=== PATIENT | female | born 1985 | race Caucasian/White ===

== ENCOUNTER 2016-10-27 08:00 | Inpatient (IN) | payer MEDICAID ==
[~2016-10-27] VITALS: Ht 142.2 cm; Wt 81.0 kg
[2016-10-28 07:03] VITALS: Ht 142.2 cm; Wt 81.0 kg
[2016-10-28] MEDS ORDERED: CEFAZOLIN 2 GM/50 ML (PMX) 50 ML IV SCH (07:30)
[2016-10-28] MEDS ORDERED: OXYTOCIN 30 UNITS/LR 500 ML IV SCH (07:30)
[2016-10-28] MEDS ORDERED: CARBOPROST 250 MCG INJ IM PRN ×2 (07:30→14:30)
[2016-10-28] MEDS ORDERED: MISOPROSTOL 200 MCG TAB PR PRN ×2 (07:30→14:30)
[2016-10-28] MEDS ORDERED: OXYTOCIN 30 UNITS/LR 500 ML IV PRN ×2 (07:30→14:30)
[2016-10-28] MEDS ORDERED: METHYLERGONOVINE 0.2 MG INJ IM PRN ×2 (07:30→14:30)
[2016-10-28] MEDS ORDERED: PRENAT PO (07:48)
[2016-10-28 07:49] VITALS: BP 116/76; PULSE 83
[2016-10-28 08:00] LABS: BASOPHILS % 0.3 % (0.0-2.0); EOSINOPHILS # 0.2 10^3/ul (0.0-0.5); EOSINOPHILS % 2.3 % (0.0-7.0); HEMATOCRIT 35.6 % (37.0-47.0); HEMOGLOBIN 12.1 g/dl (12.0-16.0); LYMPHOCYTES # 2.5 10^3/ul (0.8-2.9); LYMPHOCYTES % 27.5 % (15.0-51.0); MEAN CORPUSCULAR HEMOGLOBIN 28.9 pg (29.0-33.0); MEAN CORPUSCULAR HGB CONC 34.1 g/dl (32.0-37.0); MEAN CORPUSCULAR VOLUME 84.9 fl (82.0-101.0); MEAN PLATELET VOLUME 7.7 fl (7.4-10.4); MONOCYTE # 0.8 10^3/ul (0.3-0.9); MONOCYTES % 9.1 % (0.0-11.0); NEUTROPHIL # 5.6 10^3/ul (1.6-7.5); NEUTROPHILS % 60.8 % (39.0-77.0); PLATELET COUNT 214 10^3/UL (140-440); RED BLOOD COUNT 4.19 10^6/ul (4.20-5.40); RED CELL DISTRIBUTION WIDTH 14.5 % (11.5-14.5); UNCORRECTED WBC 9.1 10^3/ul (4.8-10.8); WHITE BLOOD COUNT 9.1 10^3/ul (4.8-10.8)
[2016-10-28 08:02] LABS: CONDITION 1; LH ANALYZER COMMENTS 1
[2016-10-28 08:06] LABS: INR 0.97; PARTIAL THROMBOPLASTIN TIME 26.4 Sec (25.0-35.0); PROTIME 12.9 Sec (12.2-14.2)
[2016-10-28] MEDS: LACTATED RINGER'S 1,000 ML IV SCH ×2 (08:15→09:48)
[2016-10-28] MEDS ORDERED: ONDANSETRON 4 MG INJ ONE (09:25)
[2016-10-28] MEDS ORDERED: CITRIC ACID/NA CITRATE 30 ML CUP ONE (09:25)
[2016-10-28] MEDS ORDERED: LACTATED RINGER'S 1,000 ML IV ONE (09:47)
[2016-10-28] MEDS ORDERED: HYDROmorphONE (0.2 MG/ML) 10ML SYG IV PRN ×3 (10:00)
[2016-10-28] MEDS ORDERED: MEPERIDINE 25 MG INJ IV PRN (10:00)
[2016-10-28] MEDS ORDERED: EPHEDrine SULFATE 50 MG/5 ML SYG IV PRN (10:00)
[2016-10-28] MEDS ORDERED: KETOROLAC 30 MG INJ IV ONE (10:00)
[2016-10-28] MEDS ORDERED: CITRIC ACID/NA CITRATE 30 ML CUP PO ONE (10:00)
[2016-10-28] MEDS ORDERED: hydrALAzine 20 MG INJ IV PRN (10:00)
[2016-10-28] MEDS ORDERED: MIDAZOLAM 1 MG/ML 2 ML INJ IV PRN (10:00)
[2016-10-28] MEDS ORDERED: DIPHENHYDRAMINE 50 MG INJ IV PRN ×3 (10:00→18:00)
[2016-10-28] MEDS ORDERED: ONDANSETRON 4 MG INJ IV ONE (10:00)
[2016-10-28] MEDS ORDERED: OXYTOCIN 10 UNIT INJ ONE (10:23)
[2016-10-28] MEDS ORDERED: morphine SULFATE/PF (10 MG/10 ML) INJ ONE (10:23)
[2016-10-28] MEDS ORDERED: MIDAZOLAM 1 MG/ML 2 ML INJ ONE (10:23)
[2016-10-28] MEDS ORDERED: EPHEDrine SULFATE 50 MG/5 ML SYG ONE (10:23)
[2016-10-28] MEDS ORDERED: ONDANSETRON 4 MG INJ IV PRN ×3 (11:00→18:00)
[2016-10-28] MEDS ORDERED: KETOROLAC 30 MG INJ IV PRN ×2 (14:00→18:00)
[2016-10-28] MEDS ORDERED: NALOXONE (0.4 MG/ML) INJ IV PRN ×2 (14:00→18:00)
[2016-10-28] MEDS ORDERED: morphine 2 MG INJ IV PRN ×4 (14:00→18:00)
[2016-10-28] MEDS ORDERED: ZOLPIDEM 5 MG TAB PO PRN ×2 (14:00→18:00)
--- NOTE | 2016-10-28 14:10 | DELSUM ---
Delivery Summary A-C Datetime Report Generated by CPN: 10/28/2016 14:10 DELIVERY PERSONNEL [employer] Craftsman: [place], Nathalie MATERNAL INFORMATION Delivery Anesthesia: Spinal Estimated Blood Loss (ml): 650 Placenta Cultured: No Maternal Complications: Precip Labor <3hrs LABOR SUMMARY EDC: 11/03/2016 00:00 No. Babies in Womb: 1 Attempted: No Labor Anesthesia: None LABOR INFORMATION Reason for Induction: Not Applicable Oxytocin: N/A Group B Beta Strep: Negative Antibiotics # of Doses: 1 Antibiotics Time of Last Dose: 1030 Steroids Given: None Reason Steroids Not Administered: Not Applicable MEMBRANES Membranes Rupture Method: Artificial Rupture of Membranes: 10/28/2016 11:02 Length of Rupture (hr): 0.02 Amniotic Fluid Color: Light Meconium Amniotic Fluid Amount: Moderate Amniotic Fluid Odor: None STAGES OF LABOR Stage 3 hr: 0 Stage 3 min: 2 CSECTION DELIVERY Primary Indication: Repeat Elective Secondary Indication: N/A CSection Urgency: Elective CSection Incidence: Repeat Labor: No Labor Elective: N/A CSection Incision: Lower Uterine Transverse BABY A INFORMATION Delivery Date/Time: 10/28/2016 11:03 Method of Delivery: Born in Route : No : N/A Forceps: N/A Vacuum Extraction: N/A Shoulder Dystocia : No SHOULDER DYSTOCIA BABY A Infant Delivery Date/Time: 10/28/2016 11:03 PRESENTATION/POSITION BABY A Presentation: Cephalic Cephalic Presentation: Vertex Breech Presentation: N/A PLACENTA INFORMATION BABY A Placenta Delivery Time : 10/28/2016 11:05 Placenta Method of Delivery: Manual Removal Placenta Status: Delivered SCORES BABY A Heart Rate 1 min: >100 bpm Resp Effort 1 min: Good Cry Reflex Irritability 1 min: Cough/Sneeze/Pulls Away Muscle Tone 1 min: Active Motion Color 1 min: Blue/Pale SCORE 1 MIN: 8 Heart Rate 5 min: >100 bpm Resp Effort 5 min: Good Cry Reflex Irritability 5 min: Cough/Sneeze/Pulls Away Muscle Tone 5 min: Active Motion Color 5 min: Body [place], Extremit Blue SCORE 5 MIN: 9 INFORMATION BABY A Gestational Age at Delivery: 39.1 Gestational Status: Full Term- 39- 40.6 Weeks Outcome : Liveborn Infant Condition : Stable Infant Sex: Male IDENTIFICATION/MEDS BABY A ID Band Number: [id number] ID Band Location: Right Leg; Left Arm Sensor Applied: Yes Sensor Number: [id number] Sensor Location : Cord Clamp Vitamin K Given : Not Given Erythromycin Given: Not Given WEIGHT/LENGTH BABY A Birthweight (gm): 3420 Weight (lb): 7 Weight (oz): 9 Length (in): 20.00 Length (cm): 50.80 CORD INFORMATION BABY A No. Cord Vessels: 3 Nuchal Cord : N/A Cord Blood Taken: Yes Suction: Mouth ASSESSMENT BABY A Complications: None Physical Findings at Delivery: Within Normal Limits Infant Respirations: Appears Normal Wildlife Protector/ALS Called : No Infant Care By: RT AND RESOURCE NURSE Transferred To: Remains with Mother
[2016-10-28] MEDS ORDERED: LANOLIN 7 GM TUBE TOP PRN (14:30)
[2016-10-28] MEDS ORDERED: CEFAZOLIN 1 GM/50 ML (PMX) 50 ML IVPB SCH ×2 (14:30→23:00)
[2016-10-28] MEDS ORDERED: ACETAMINOPHEN/CODEINE #3 TAB PO PRN ×2 (14:30)
[2016-10-28] MEDS ORDERED: OXYCODONE/ACETAMINOPHEN (5/325) TAB PO PRN (14:30)
[2016-10-28 15:15] VITALS: BP 113/71; PULSE 80; RESP 18
[2016-10-28 16:00] VITALS: BP 102/58; PULSE 83; RESP 18
[2016-10-28 17:00] VITALS: BP 104/62; PULSE 81; RESP 18
[2016-10-28 18:00] VITALS: BP 95/56; PULSE 76; RESP 18
[2016-10-28] MEDS: OXYTOCIN 30 UNITS/LR 500 ML IV SCH ×3 (18:29→22:40)
--- NOTE | 2016-10-28 18:39 | OPR ---
DATE OF OPERATION: 10/28/2016 PREOPERATIVE DIAGNOSES 1. Intrauterine at 39 weeks' gestation. 2. History of 3 previous sections. POSTOPERATIVE DIAGNOSIS: 1. Intrauterine at 39 weeks' gestation. 2. History of 3 previous sections. OPERATION PERFORMED: Repeat transverse low cervical section for the 4th time. SURGEON: Agnieszka Craig MD HAND DEVELOPER: Jolie Braxton MD ANESTHESIA: Spinal. ANESTHESIOLOGIST: Dr. Grande. FINDINGS: Live baby boy, 8 and 9. Baby weighed 7 pounds 9 ounces. DETAILS OF THE PROCEDURE: Under satisfactory spinal anesthesia, the patient was prepped and draped and placed in supine position, tilted to the left. Pfannenstiel incision was made. Old scar was re moved. Incision carried through the subcutaneous tissue. Bleeders were brought under control with electrocautery. Fascia incised to the length of the incision. Rectus muscle divided in midline. P eritoneum exposed, entered through a transverse incision. Exploration of abdomen, gravid uterus at term, normal appearing tubes and ovaries. Lower segment of the uterus was extremely thinned out and there was a 3 x 2 cm window the baby from the abdominal cavity only by the amniotic mem brane. Bladder flap was developed. Transverse incision was made in the lower segment of the uterus . Amniotic sac ruptured. Clear amniotic fluid noted. Live baby boy was delivered from unengaged v ertex. Nasal oropharyngeal suction was performed. Baby handed to the team for immediate a ttention. The patient received 20 units of Pitocin. Placenta delivered manually intact. Uterine c avity cleaned with wet sponge and drainage established. Uterus closed in 2 layers using Monocryl #1 in continuous fashion, which was reinforced with the same suture material for the second layer, imb ricating the edges. The peritoneal cavity irrigated with warm saline. Sponge, needle and instrumen t reported to be correct. Abdominal peritoneum closed with 2-0 chromic catgut continuously. Rectus muscle approximated with few interrupted 2-0 chromic catgut. Fascia closed with #1 PDS in a contin uous fashion. Subcutaneous tissue approximated with 2-0 chromic catgut. Fascia closed with #1 PDS in a continuous fashion. Subcutaneous tissue approximated with 2-0 chromic catgut and the skin clos ed with kendra. Estimated blood loss 600 to 700 mL. Urine bag contained 200 mL of clear urine. P atient tolerated procedure well, transferred to recovery room in a good condition. Dictated By: AGNIESZKA KLEIN/CATRACHITA Conf#: [id number] DID#: [id number]
[2016-10-28 19:40] VITALS: BP 100/56; PULSE 70; RESP 18
[2016-10-29] VITALS: BP 96/52; PULSE 69; RESP 18
[2016-10-29] MEDS: OXYTOCIN 30 UNITS/LR 500 ML IV SCH (02:41)
[2016-10-29 04:25] VITALS: BP 98/56; PULSE 74; RESP 18
[2016-10-29] MEDS ORDERED: LACTATED RINGER'S 250 ML IV ONE (06:30)
[2016-10-29] MEDS ORDERED: LACTATED RINGER'S 1,000 ML IV SCH (07:00)
[2016-10-29 08:30] VITALS: BP 91/50; PULSE 81; RESP 17
[2016-10-29 08:43] LABS: BASOPHILS % 0.2 % (0.0-2.0); EOSINOPHILS # 0.2 10^3/ul (0.0-0.5); EOSINOPHILS % 2.2 % (0.0-7.0); HEMATOCRIT 30.8 % (37.0-47.0); HEMOGLOBIN 10.7 g/dl (12.0-16.0); LYMPHOCYTES # 1.5 10^3/ul (0.8-2.9); LYMPHOCYTES % 14.6 % (15.0-51.0); MEAN CORPUSCULAR HEMOGLOBIN 29.5 pg (29.0-33.0); MEAN CORPUSCULAR HGB CONC 34.7 g/dl (32.0-37.0); MEAN PLATELET VOLUME 7.6 fl (7.4-10.4); MONOCYTE # 0.7 10^3/ul (0.3-0.9); MONOCYTES % 6.4 % (0.0-11.0); NEUTROPHILS % 76.6 % (39.0-77.0); PLATELET COUNT 181 10^3/UL (140-440); RED BLOOD COUNT 3.62 10^6/ul (4.20-5.40); RED CELL DISTRIBUTION WIDTH 14.9 % (11.5-14.5); UNCORRECTED WBC 10.5 10^3/ul (4.8-10.8); WHITE BLOOD COUNT 10.5 10^3/ul (4.8-10.8)
[2016-10-29] MEDS: SENNA/DOCUSATE NA (8.6MG/50MG) TAB PO SCH ×2 (08:48→20:51)
[2016-10-29] MEDS ORDERED: INFLUENZA VIRUS VACCINE 0.5 ML SYG IM* ONE (09:00)
[2016-10-29 09:01] LABS: CONDITION 1; LH ANALYZER COMMENTS 1
[2016-10-29 11:30] VITALS: BP 85/51; PULSE 88; RESP 17
--- NOTE | 2016-10-29 14:05 | PN ---
Date/Time of Note Date/Time of Note DATE: 10/29/16 TIME: 14:04 OB Subjective Subjective Subjective Vital sign stable, afebrile, abdomen soft incision dry, bowel sounds present, no bowel movement, extremity normal, ambulation recommended AGNIESZKA SAEED MD Oct 29, 2016 14:05
--- NOTE | 2016-10-29 14:51 | HP ---
DATE OF ADMISSION: 10/28/2016 HISTORY OF PRESENT ILLNESS: This is a 31-year-old female, 5, para 3, history of 3 previous sections with an EDC of , admitted to [facility] being prep ared to undergo a repeat section for the 4th time. This patient has been under the care of the [facility], and her course was not complicated with gestational diabetes, p regnancy-induced hypertension, or any other serious surgical or medical conditions. GYNECOLOGIC HISTORY: Menarche at age 12, regular period every 28 days to 32 days, lasting for 5 day s. History of total of 5 pregnancies, including the present, with 3 previous sections and 1 spontaneous . ALLERGIES: SHE IS NOT ALLERGIC TO ANY KNOWN MEDICATION. SOCIAL HISTORY: Denies smoking and drinking. REVIEW OF SYSTEMS: Within normal. PHYSICAL EXAMINATION: VITAL SIGNS: Height 56 inches, weight 179 pounds, total weight gain during the 17 pounds . Temperature 98, pulse of 68, respirations 16, and blood pressure 99/63. HEAD, EARS, NOSE, AND THROAT: Negative. NECK: Supple. No thyromegaly. LUNGS: Clear to P and A. HEART: Normal sinus rhythm, no murmur. BREASTS: Status compatible with state of the . No abnormal palpable mass. No nipple retr action or discharge. No axillary adenopathy. No supraclavicular adenopathy. ABDOMEN: Measures 37 cm from symphysis pubis to the height of the fundus with a heart rate ca tegory 1. PELVIC: Deferred. EXTREMITIES: No edema, no varicosities. IMPRESSION: Intrauterine at 39 weeks' gestation, history of 3 previous sections, being prepared to undergo for the 4th section. The patient declined a recommendation for tubal ligation. She is aware of the complication of the surgery including bowel or bladder injury, infection, hemorrhage, and hematoma, and she is willing to go ahead with this procedure. Dictated By: AGNIESZKA KLEIN/NTS Conf#: [id number] DID#: [id number]
[2016-10-29] MEDS: OXYCODONE/ACETAMINOPHEN (5/325) TAB PO PRN (15:48)
[2016-10-29 16:00] VITALS: BP 103/67; PULSE 79; RESP 17
[2016-10-29] MEDS: IBUPROFEN 600 MG TAB PO SCH (18:38)
[2016-10-29 19:40] VITALS: BP 105/70; PULSE 70; RESP 18
[2016-10-30] MEDS: IBUPROFEN 600 MG TAB PO SCH ×5 (00:09→23:35)
[2016-10-30 04:05] VITALS: BP 99/55; PULSE 71; RESP 18
[2016-10-30] MEDS: SENNA/DOCUSATE NA (8.6MG/50MG) TAB PO SCH ×2 (08:48→20:53)
[2016-10-30] MEDS: OXYCODONE/ACETAMINOPHEN (5/325) TAB PO PRN ×2 (08:49→20:57)
[2016-10-30 08:50] VITALS: BP 109/69; PULSE 72; RESP 17
--- NOTE | 2016-10-30 13:11 | PN ---
Date/Time of Note Date/Time of Note DATE: 10/30/16 TIME: 13:09 OB Subjective Subjective Subjective Postop day 2 Afebrile vital sign stable abdomen soft incision dry lochia normal extremity normal bowel sounds no bowel movement ambulation recommended, enema ordered AGNIESZKA SAEED MD Oct 30, 2016 13:11
[2016-10-30] MEDS ORDERED: NA PHOSPHATE/BIPHOS 133 ML ENEMA PR ONE (13:30)
[2016-10-30 16:00] VITALS: BP 109/73; PULSE 84; RESP 17
[2016-10-30 19:40] VITALS: BP 114/71; PULSE 80; RESP 20
[2016-10-31 04:00] VITALS: BP 106/61; PULSE 70; RESP 19
[2016-10-31] MEDS: IBUPROFEN 600 MG TAB PO SCH ×2 (05:48→12:11)
[2016-10-31 08:00] VITALS: BP 114/77; PULSE 78; RESP 18
[2016-10-31] MEDS: SENNA/DOCUSATE NA (8.6MG/50MG) TAB PO SCH (09:00)
[2016-10-31] MEDS ORDERED: DIPHTH/TET/ACEL PERTUSS (ADULT) 0.5 ML VIAL IM* ONE (09:00)
--- NOTE | 2016-10-31 13:50 | PD.PPDC ---
[facility] Discharge Instruction Condition Patient Condition: Good Diet Diet: Resume Regular Diet Follow-up Follow-up with Physician: 1 Provider Information: Appointment office in 4 days to PAULO gardner Return to clinic for MANAGER STERILE Instructions: Fever greater than 101 Chills Worsening abdominal pain Excessive Vaginal Bleeding More than 2 pads per hour Unable to tolerate diet OB Instructions: Breast Tenderness Blurried Vision Headache Surgical Instructions: Incisional Drainage Incisional Redness AGNIESZKA SAEED MD Oct 31, 2016 13:50
--- NOTE | 2016-10-31 13:53 | DS ---
Date/Time of Note Date/Time of Note DATE: 10/31/16 TIME: 13:51 Obstetrical Discharge Record Final Diagnosis Final Diagnosis: Term delivered Section Section: Repeat Condition on Discharge Physical Assessment Last Vitals: Vital sign stable, afebrile, abdomen soft, vision dry, bowel sound present, Tia had normal bowel movement, stringently normal, perez discharged home to follow-up instructions to be seen at the clinic in 4 day to DC her kendra patient received a prescription of analgesics, Voiding: Yes Bowel Movement: Yes Fundus: Firm Abdomen and Incision: Dry healing well Calf Tenderness: No Patient Condition: Good AGNIESZKA SAEED MD Oct 31, 2016 13:53
== END 2016-10-31 16:45 | disposition home or self-care (01) | DRG 765 ==
LOC: L-D 10-28 06:38 → PP1 10-28 14:49
PROVIDERS: ADMIT Obstetrics & Gynecology; ATTEND Obstetrics & Gynecology
PROC: 10D00Z1 Extraction of Products of Conception, Low, Open Approach (ICD-10-PCS; principal; 2016-10-28 10:30)
DX: O34.211 Maternal care for low transverse scar from previous cesarean delivery (principal); Z68.41 Body mass index [BMI] 40.0-44.9, adult; O99.214 Obesity complicating childbirth; Z3A.39 39 weeks gestation of pregnancy; Z37.0 Single live birth
CPT/HCPCS: 85025; 85610; 85730; 86592; 86850; 86900; 86901; 87340; 90686; 90715; 94760; 99464; J0690; J1885; J2250; J2274; J2405; J2590; J7120